=== PATIENT | male | born 1990 | race Two or more races ===

== ENCOUNTER 2021-10-06 23:43 | Emergency (ER) | payer MEDICAID, OTHER ==
[~2021-10-06] VITALS: Ht 182.9 cm; Wt 92.5 kg
--- NOTE | 2021-10-07 00:25 | NUR ---
BIBS C/O WEAKNESS, MUSCLE TWITCHING, NO APPETITE, ADMITS TO DAILY ETOH. PATIENT ALERT AND ORIENTED X3. AMBULATORY WITH NON LABORED BREATHING IN BED 06 ON MONITOR AND POX AWAITING MD ROSENBERG.
[2021-10-07] MEDS ORDERED: MULTIVITAMINS,THERAGRAN 1 UDTAB TABLET PO SCH (00:30)
[2021-10-07] MEDS ORDERED: IV LR 1000 ML 1,000 ML IV ONE (00:30)
[2021-10-07] MEDS ORDERED: Folic acid 1 MG/0.2 ML VIAL IM ONE (00:30)
[2021-10-07] MEDS ORDERED: LORAZEPAM INJ 2 MG/ML VIAL IVP ONE (00:30)
--- NOTE | 2021-10-07 00:34 | NUR ---
BLOOD COLLECTED AND SENT TO LAB
[2021-10-07] MEDS ORDERED: LORAZEPAM INJ 2 MG/ML VIAL ONE (00:36)
[2021-10-07] MEDS ORDERED: MULTIVIT W/MINERALS 1 TAB TABLET ONE (00:36)
[2021-10-07] MEDS ORDERED: Folic acid 1 MG/0.2 ML VIAL ONE (00:36)
[2021-10-07 01:26] LABS: BASOPHILS % (AUTO) 0.8 % (0.0-2.0); EOSINOPHILS % (AUTO) 2.3 % (0.0-6.0); HEMATOCRIT 45 % (39-51); HEMOGLOBIN 15.4 g/dL (13.5-17.5); LYMPHOCYTES # (AUTO) 1.4 K/uL (0.8-4.8); LYMPHOCYTES % (AUTO) 24.7 % (20.0-44.0); MEAN CORPUSCULAR HGB CONC 35 g/dl (31.0-36.0); MEAN CORPUSCULAR VOLUME 103 fL (80-96); MONOCYTES # (AUTO) 0.6 K/uL (0.1-1.30); MONOCYTES % (AUTO) 11.1 % (2.0-12.0); NEUTROPHILS # (AUTO) 3.5 K/uL (1.8-8.9); NEUTROPHILS % (AUTO) 61.1 % (43.0-81.0); PLATELET COUNT (AUTO) 160 K/uL (150-450); RED BLOOD CELL COUNT(AUTO) 4.32 MIL/uL (4.5-6.0); WHITE BLOOD COUNT (AUTO) 5.6 K/uL (4.3-11.0)
[2021-10-07 02:12] LABS: CALCIUM, SERUM 9.3 mg/dL (8.5-10.1); CREATININE 0.9 mg/dL (0.6-1.3); POTASSIUM 3.5 mmol/L (3.5-5.1)
--- NOTE | 2021-10-07 03:17 | NUR ---
Patient discharged to home in stable condition. Written and verbal after care instructions given. Patient verbalizes understanding of instruction. IV line removed and PT ambulatory with steady gait.
[2021-10-07 04:24] VITALS: BP 154/84
== END 2021-10-07 03:20 | disposition home or self-care (01) ==
LOC: ER 23:45
DX: F10.939 Alcohol use, unspecified with withdrawal, unspecified (principal); Z88.0 Allergy status to penicillin; Y90.9 Presence of alcohol in blood, level not specified
CPT/HCPCS: 36415; 80048; 83735; 85025; 93005; 96361; 96372; 96374; 99284; J2060; J3490; J7120